=== PATIENT | male | born 1965 | race American Indian/Alaskan Native ===

== ENCOUNTER 2016-10-29 03:11 | Emergency (ER) | payer MEDICAID ==
[2016-10-29 04:07] LABS: Basophils % (Auto) 1.1 % (0.0-1.8); Eosinophils % (Auto) 2.3 % (0.0-4.3); Hematocrit 44.2 % (35.5-45.6); Hemoglobin 14.7 gm/dl (11.8-15.2); Mean Corpuscular HGB Conc 33 % (32-34); Mean Corpuscular Hemoglobin 31 pg (28-32); Mean Corpuscular Volume 94 fl (84-94); Red Blood Count 4.69 M/mm3 (3.65-5.03); Red Cell Distribution Width 14.9 % (13.2-15.2); White Blood Count 4.2 K/mm3 (4.5-11.0)
[2016-10-29 04:57] LABS: Alanine Aminotransferase 12 units/L (7-56); Albumin 4.2 g/dL (3.9-5); Albumin/Globulin Ratio 1.3 %; Alkaline Phosphatase 83 units/L (35-129); BUN/Creatinine Ratio 15.55; Bilirubin,Total 0.7 mg/dL (0.1-1.2); Blood Urea Nitrogen 14 mg/dL (9-20); Calcium 9.2 mg/dL (8.4-10.2); Carbon Dioxide 28 mmol/L (22-30); Chloride 101.7 mmol/L (98-107); Glucose 104 mg/dL (75-100); Lipase 28 units/L (13-60); Potassium 4.2 mmol/L (3.6-5.0); Sodium 140 mmol/L (137-145); Total Protein 7.4 g/dL (6.3-8.2)
[2016-10-29 05:01] LABS: Anion Gap 15 mmol/L
[2016-10-29 05:16] LABS: Bilirubin,Urine NEG (Negative); Blood,Urine NEG (Negative); Ketones,Urine NEG (Negative); Leukocyte Esterase,Urine NEG (Negative); Mucus,Urine 3+ /HPF; Nitrite,Urine NEG (Negative); Protein,Urine <15 mg/dL mg/dL (Negative); Urobilinogen,Urine < 2.0 mg/dL (<2.0); WBC,Urine < 1.0 /HPF (0.0-6.0)
[2016-10-29 05:28] LABS: Platelet Count 270 K/mm3 (140-440)
[2016-10-29 10:47] VITALS: BP 133/97
--- NOTE | 2016-10-29 10:56 | Emergency Department Report ---
HPI - General Chief Complaint: Abdominal Pain Time Seen by Provider: 10/29/16 10:02 - HPI HPI: The patient is a 51-year-old male who presents for evaluation of abdominal pain. The patient reports abdominal pain for the past greater than one year, return for the past one day, 10 out of 10 in severity, generalized in location, sharp in quality, radiating into the mid chest. The patient denies fever, cough , dyspnea, syncope, chest pain, hematemesis, diarrhea, blood in the stool, dark tarry stool, dysuria, hematuria, flank pain, genital discharge, inability to pass flatus. ED Past Medical Hx - Past Medical History Previous Medical History?: No - Surgical History Additional Surgical History: hemrroid surgery and cataract surgery - Social History Smoking Status: Never Smoker Substance Use Type: None - Medications Home Medications: Home Medications Medication Instructions Recorded Confirmed Last Taken Type Cyclobenzaprine HCl [Flexeril 5 MG 5 mg PO Q8HR PRN #14 tab 10/29/16 Unknown Rx TAB] Omeprazole Magnesium [PriLOSEC Otc] 20 mg PO QDAY #14 tablet. 10/29/16 Unknown Rx ED Review of Systems ROS: Stated complaint: ABDOMINAL PAIN Other details as noted in HPI Constitutional: denies: fever ENT: denies: throat or neck pain Respiratory: denies: cough, shortness of breath Cardiovascular: denies: chest pain Endocrine: denies unexplained weight loss or gain Gastrointestinal: reports abdominal pain, nausea Genitourinary: denies: dysuria Musculoskeletal: denies: leg swelling Skin: denies: rash Neurological: denies: headache Hematological/Lymphatic: denies: easy bleeding or easy bruising Psych: denies sadness or hopelessness Physical Exam - Physical Exam Vital Signs: Vital Signs 10/29/16 10/29/16 03:34 10:44 Temperature 98.2 F 97.6 F Pulse Rate 68 58 L Respiratory 18 15 Rate Blood Pressure 139/88 Blood Pressure 133/97 [Right] O2 Sat by Pulse 96 98 Oximetry Physical Exam: General: well-nourished, well-developed, no acute distress Head: Normocephalic, atraumatic Eyes: normal sclera ENT: Mucous membranes are pink and moist Neck: trachea midline, neck supple, No neck stiffness, no cervical adenopathy Respiratory: Breath sounds equal bilaterally, no wheezing, rales, or rhonchi Cardio: S1 and S2 present, no murmurs, rubs, gallops, capillary refill is brisk Abdomen: Normoactive bowel sounds, soft abdomen, generalized tenderness to palpation present, no rigidity, no guarding or rebound tenderness Musc: No pitting edema Skin: No rash Neuro: no facial drooping, normal speech Psych: Normal affect ED Course Vital Signs 10/29/16 10/29/16 03:34 10:44 Temperature 98.2 F 97.6 F Pulse Rate 68 58 L Respiratory 18 15 Rate Blood Pressure 139/88 Blood Pressure 133/97 [Right] O2 Sat by Pulse 96 98 Oximetry ED Medical Decision Making - Lab Data Result diagrams: 10/29/16 03:50 10/29/16 03:50 - Medical Decision Making The patient was seen and examined by myself. The patient is placed on a desktop support consultant and continuous pulse ox. On initial evaluation, the patient was found to be in no distress. Evaluation orders are placed. The patient is given an IM dose of morphine. Lab results were non-concerning including WBC, hemoglobin, hematocrit, electrolytes, renal function, LFTs, lipase, and urinalysis. The patient was reevaluated and reported that their symptoms were markedly improved. The patient is stable for discharge with outpatient follow- up. The patient is given follow-up and return instructions. The patient expressed understanding and agreed with the plan. The patient is discharged in stable condition. Critical care attestation.: If time is entered above; I have spent that time in minutes in the direct care of this critically ill patient, excluding procedure time. ED Disposition Clinical Impression: Abdominal pain, acute, generalized Disposition: DISCHARGED TO HOME OR SELFCARE Is pt being admited?: No Does the pt Need Aspirin: No Condition: Stable Instructions: Acute Abdominal Pain (ED), Peptic Ulcer (ED), Gastritis (ED), Diet for Ulcers and Gastritis (ED) Prescriptions: Cyclobenzaprine HCl [Flexeril 5 MG TAB] 5 mg PO Q8HR PRN #14 tab PRN Reason: Pain Omeprazole Magnesium [PriLOSEC Otc] 20 mg PO QDAY #14 tablet. Referrals: PRIMARY CARE, [Primary Care Provider] - 3-5 Days Time of Disposition: 10:51
[2016-10-29] MEDS ORDERED: MORPHINE IM ONE (10:58)
[2016-10-29] MEDS ORDERED: ZOFRAN ODT PO ONE (10:58)
== END 2016-10-29 11:29 | disposition home or self-care (01) ==
LOC: ED 03:11
DX: R10.84 Generalized abdominal pain (principal)
CPT/HCPCS: 36415; 80053; 81001; 83690; 85025; 96372; 99284; J2270; Q0162

== ENCOUNTER 2016-12-24 09:53 | Emergency (ER) | payer MEDICAID ==
[2016-12-24 10:09] VITALS: BP 125/84
--- NOTE | 2016-12-24 13:12 | Emergency Department Report ---
Upper Extremity - HPI Chief Complaint: Shoulder Injury Stated Complaint: RT SHOULDER PAIN Time Seen by Provider: 12/24/16 13:07 Upper Extremity: Right Shoulder (pain without injury), Right Arm (pain) Occurred When: >5 Days Mechanism: Unsure (patient said he's been lifting heavy objects) Severity: severe Symptoms: Yes Pain with Movement, Yes Limited Range of Movement, No Deformity, No Numbness, No Weakness, No Swelling, No Bruising/Ecchymosis, No Laceration or Abrasion Other History: Patient here reports that he is having rate upper arm and shoulder pain times one and a half weeks. Denies any injury. He said he feels like he pulled a muscle from lifting heavy objects. He said it hurts with certain movement and position. Pain is 10 out of 10. Pain feels achy. ED Review of Systems ROS: Stated complaint: RT SHOULDER PAIN Other details as noted in HPI Comment: All other systems reviewed and negative Constitutional: denies: chills, fever Respiratory: no symptoms reported Cardiovascular: denies: chest pain, palpitations, edema, syncope Gastrointestinal: denies: nausea, vomiting Musculoskeletal: arthralgia. denies: back pain Skin: denies: rash Neurological: denies: headache, numbness, paresthesias, confusion, abnormal gait , vertigo ED Past Medical Hx - Past Medical History Previous Medical History?: No - Surgical History Past Surgical History?: Yes Additional Surgical History: HEMORRHOID surgery and cataract surgery - Family History Family history: no significant - Social History Smoking Status: Never Smoker Substance Use Type: Alcohol - Medications Home Medications: Home Medications Medication Instructions Recorded Confirmed Last Taken Type traMADol [Ultram] 50 mg PO Q6HR PRN #20 tablet 12/24/16 Unknown Rx Upper Extremity Exam - Exam General: Vital signs noted. No distress. Alert and acting appropriately. This is a 51-year-old male well-nourished well-developed in no acute distress Head and Torso: No HEENT Abnormality, No Neck Tenderness, No Chest/Lungs Abnormality, No Abdominal Tenderness, No Back Tenderness Shoulder Exam: Yes Normal Range of Motion in Shoulder, No Shoulder Tenderness, No Clavicle Tenderness, No Shoulder Deformity, No AC Joint Tenderness Arm Exam: No Arm/Humerus Tenderness, No Arm Deformity Elbow: Yes Normal Range of Motion in Elbow, No Elbow Tenderness, No Elbow Deformity Forearm: No Forearm Tenderness, No Forearm Deformity, No Pain with Pronation, No Pain with Supination Wrist: Yes Normal ROM in Wrist, No Wrist Tenderness, No Wrist Deformity, No Snuffbox Tenderness, No Pain with Axial Thumb Compression Hand: Yes Normal ROM in Digit(s), No Hand Tenderness, No Hand Deformity, No Digit Tenderness, No Digit(s) Deformity, No Tendon Dysfunction CMS Exam: Yes Normal Distal Pulses, Yes Normal Capillary Refill, Yes Normal Distal Sensation, No Broken Skin ED Course Vital Signs 12/24/16 10:02 Temperature 98.4 F Pulse Rate 67 Respiratory 18 Rate Blood Pressure 125/84 O2 Sat by Pulse 98 Oximetry - Reevaluation(s) Reevaluation #1: 12/24/16 13:11 Patient stable throughout ED course ED Medical Decision Making - Medical Decision Making ED course: I discussed the patient is an physical findings she does not have any fracture or dislocated bones.I told him could have rotator cuff injury and he will need to follow-up with orthopedic doctor for possible MRI. I discussed diagnosis and pain management with patient. He is In agreement. Patient discharged home with prescription for Ultram Critical care attestation.: If time is entered above; I have spent that time in minutes in the direct care of this critically ill patient, excluding procedure time. ED Disposition Clinical Impression: Arthralgia of right shoulder region Disposition: DISCHARGED TO HOME OR SELFCARE Is pt being admited?: No Does the pt Need Aspirin: No Condition: Stable Instructions: Arthralgia (ED) Prescriptions: traMADol [Ultram] 50 mg PO Q6HR PRN #20 tablet PRN Reason: Pain Referrals: BANDAR CRAWFORD JR, MD [Primary Care Provider] - 3-5 Days NAYANA SHAW MD [Staff Physician] - 12/28/16 Forms: Accompanied Note, Work/School Release Form(ED)
== END 2016-12-24 13:24 | disposition home or self-care (01) ==
LOC: ED 09:53
DX: M25.511 Pain in right shoulder (principal)
CPT/HCPCS: 99282

== ENCOUNTER 2017-02-08 10:27 | Emergency (ER) | payer MEDICAID ==
--- NOTE | 2017-02-08 12:03 | Emergency Department Report ---
Entered by KODAK CAI, acting as scribe for ELIO OBRIEN NP. Chief Complaint: Chest Pain Stated Complaint: CP/ABD PAIN/CRAMPING Time Seen by Provider: 02/08/17 11:46 - HPI History of Present Illness: Patient presents to the ED abdominal cramping and chest pain for 5 months. Reports losing about 15 lbs in four months. Reports nausea and blood in stool, but denies vomiting and diarrhea. Patient notes that his diet mainly consists of spicy food. Reports having an infection last year and was prescribed medication with no relief. Consume moderate amounts of EtOH. - ROS Review of Systems: All systems are negative unless stated in HPI above. - Exam Vital Signs: Vital Signs 02/08/17 11:19 Temperature 98.1 F Pulse Rate 66 Blood Pressure 137/81 O2 Sat by Pulse 100 Oximetry Physical Exam: General: alert and oriented x 3 MSE screening note: Focused history and physical exam performed. Due to findings the following was ordered: ABD PAIN BLOODY STOOL WEAK SAME IN PAST SAW GI INFECTION DETAILS UNKNOWN LOST 14 POUNDS IN 4 MONTHS WEAK. ED Medical Decision Making - EKG Data EKG shows normal: sinus rhythm Rate: normal - EKG Data When compared to previous EKG there are: no significant change Interpretation: no acute changes - Medical Decision Making Patient seen by provider in triage area. Patient will be taken to get lab work done. ED Disposition for MSE Condition: Stable This documentation as recorded by the scribe,KODAK CAI,accurately reflects the service I personally performed and the decisions made by ,ELIO STRICKLAND NP.
[2017-02-08 12:26] LABS: Basophils % (Auto) 0.7 % (0.0-1.8); Eosinophils % (Auto) 2.4 % (0.0-4.3); Hematocrit 42.6 % (35.5-45.6); Hemoglobin 13.7 gm/dl (11.8-15.2); Mean Corpuscular HGB Conc 32 % (32-34); Mean Corpuscular Hemoglobin 31 pg (28-32); Mean Corpuscular Volume 95 fl (84-94); Platelet Count 213 K/mm3 (140-440); Red Cell Distribution Width 14.1 % (13.2-15.2); White Blood Count 5.2 K/mm3 (4.5-11.0)
[2017-02-08 12:36] LABS: Amylase 156 units/L (27-131); Lipase 26 units/L (13-60)
[2017-02-08 12:38] LABS: Alanine Aminotransferase 12 units/L (7-56); Albumin 4.3 g/dL (3.9-5); Albumin/Globulin Ratio 1.4 %; Alkaline Phosphatase 81 units/L (35-129); Anion Gap 14 mmol/L; Bilirubin,Total 0.4 mg/dL (0.1-1.2); Blood Urea Nitrogen 12 mg/dL (9-20); Calcium 9.6 mg/dL (8.4-10.2); Carbon Dioxide 27 mmol/L (22-30); Chloride 102.5 mmol/L (98-107); Glucose 95 mg/dL (75-100); Potassium 4.4 mmol/L (3.6-5.0); Sodium 139 mmol/L (137-145); Total Protein 7.3 g/dL (6.3-8.2)
[2017-02-08] MEDS ORDERED: BABY ASPIRIN PO ONE (21:02)
--- NOTE | 2017-02-08 21:11 | Emergency Department Report ---
ED Abdominal Pain HPI - General Chief Complaint: Chest Pain Stated Complaint: CP/ABD PAIN/CRAMPING Time Seen by Provider: 02/08/17 21:00 Source: patient Mode of arrival: Ambulatory Limitations: No Limitations - History of Present Illness Initial Comments: Patient is a 51-year-old gentleman with no past medical history is ends to the ER with diffuse abdominal pain 6 months. Patient reports today's different because the pain is more constant and the pain radiates up into the chest but patient denies chest pain. Patient also reports a 20 pound unintentional weight loss over the last 6 months but denies any change in appetite or difficulty eating. She has not seen a primary provider for this. Patient does report he does binge drink on the weekends but denies any other drug use or lifestyle changes. Eyes no fevers, chills, nausea, vomiting, diarrhea, chest pain, trauma, travel, or sick contacts. MD Complaint: abdominal pain, other (chest pain) -: month(s) (six) Location: diffuse Radiation: chest Severity: moderate Consistency: constant Improves With: nothing Worsens With: nothing - Related Data Previous Rx's Medication Instructions Recorded Last Taken Type traMADol [Ultram] 50 mg PO Q6HR PRN #20 tablet 12/24/16 Unknown Rx Allergies Allergy/AdvReac Type Severity Reaction Status Date / Time No Known Allergies Allergy Verified 12/24/16 10:10 ED Review of Systems ROS: Stated complaint: CP/ABD PAIN/CRAMPING Other details as noted in HPI Comment: All other systems reviewed and negative ED Past Medical Hx - Past Medical History Previous Medical History?: No - Surgical History Additional Surgical History: HEMORRHOID surgery and cataract surgery - Social History Smoking Status: Never Smoker Substance Use Type: Alcohol - Medications Home Medications: Home Medications Medication Instructions Recorded Confirmed Last Taken Type traMADol [Ultram] 50 mg PO Q6HR PRN #20 tablet 12/24/16 Unknown Rx ED Physical Exam - General Limitations: No Limitations General appearance: alert, in no apparent distress - Head Head exam: Present: atraumatic, normocephalic - Eye Eye exam: Present: normal appearance - ENT ENT exam: Present: mucous membranes moist - Neck Neck exam: Present: normal inspection - Respiratory Respiratory exam: Present: normal lung sounds bilaterally. Absent: respiratory distress - Cardiovascular Cardiovascular Exam: Present: regular rate, normal rhythm. Absent: systolic murmur, diastolic murmur, rubs, gallop - GI/Abdominal GI/Abdominal exam: Present: soft, tenderness (mild diffuse), normal bowel sounds. Absent: distended, guarding, rebound, mass, pulsatile mass, hernia - Rectal Rectal exam: Present: deferred - Extremities Exam Extremities exam: Present: normal inspection - Back Exam Back exam: Present: normal inspection - Neurological Exam Neurological exam: Present: alert, oriented X3 - Psychiatric Psychiatric exam: Present: normal affect, normal mood - Skin Skin exam: Present: warm, dry, intact, normal color. Absent: rash ED Course Vital Signs 02/08/17 02/08/17 11:19 21:11 Temperature 98.1 F 97.9 F Pulse Rate 66 51 L Respiratory 20 Rate Blood Pressure 137/81 Blood Pressure 133/96 [Left] O2 Sat by Pulse 100 99 Oximetry ED Medical Decision Making - Lab Data Result diagrams: 02/08/17 12:06 02/08/17 12:06 - EKG Data -: EKG Interpreted by Me (11:10) EKG shows normal: sinus rhythm, axis (normal), intervals (normal, QTc:422ms), ST -T waves ((-)ST/T changes, (-)STEMI) Rate: normal (61 bpm) - Radiology Data Radiology results: report reviewed CT abd pelvis: Left common iliac artery dilation of 2 cm otherwise no intra- abdominal pathology - Medical Decision Making Discussed with the patient patient is aware of mild dilation of his left common iliac artery. Patient to follow-up with primary care with recommendations to see a poll clerk. Critical care attestation.: If time is entered above; I have spent that time in minutes in the direct care of this critically ill patient, excluding procedure time. ED Disposition Clinical Impression: Chronic abdominal pain Disposition: DISCHARGED TO HOME OR SELFCARE Is pt being admited?: No Condition: Stable Instructions: Abdominal Pain (ED) Referrals: PRIMARY CARE,MD [Primary Care Provider] - 3-5 Days
[2017-02-08] MEDS ORDERED: NACL 0.9% 1000 ML 1,000 ML IV ONE (21:23)
[2017-02-08 22:06] LABS: Bilirubin,Urine NEG (Negative); Blood,Urine NEG (Negative); Ketones,Urine NEG (Negative); Leukocyte Esterase,Urine NEG (Negative); Mucus,Urine FEW /HPF; Nitrite,Urine NEG (Negative); Protein,Urine <15 mg/dL mg/dL (Negative); Urobilinogen,Urine < 2.0 mg/dL (<2.0); WBC,Urine < 1.0 /HPF (0.0-6.0)
--- NOTE | 2017-02-08 23:19 | Cat Scan Report ---
FINAL REPORT EXAM: CT ABDOMEN PELVIS W CON HISTORY: diffuse abdominal pain TECHNIQUE: Serial axial images through the abdomen and pelvis with coronal and sagittal reconstruction. Intravenous administration of 100 milliliters Omnipaque 300 PRIORS: None. FINDINGS: There is mild atelectasis in the lung bases. No pleural effusion is seen. The liver, gallbladder, pancreas, spleen and adrenal glands appear within normal limits. Kidneys appear normal. Aorta is normal in caliber. The left common iliac artery measures up to 2 centimeters in diameter. Bladder appears normal. No free fluid. Appendix appears normal. No gross bowel abnormality is identified. There is ankylosis of the sacroiliac joints. IMPRESSION: 1. No free fluid or inflammatory changes are seen in the abdomen or pelvis. 2. 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
[2017-02-09 00:12] VITALS: BP 130/86
--- NOTE | 2017-02-09 08:19 | XRay Report ---
ROUTINE CHEST, TWO VIEWS: PA and lateral views demonstrate the heart and mediastinal contour to be of normal size and shape. The lungs are clear and fully expanded and the soft tissues and bony structures are normal. IMPRESSION: Normal study.
== END 2017-02-08 23:55 | disposition home or self-care (01) ==
LOC: ED 10:27
DX: R10.84 Generalized abdominal pain (principal); G89.29 Other chronic pain
CPT/HCPCS: 36415; 71020; 74177; 80053; 81001; 82150; 83690; 84484; 85025; 93005; 93010; 96360; 99284; J7030; Q9967

== ENCOUNTER 2017-09-08 08:14 | Emergency (ER) | payer MEDICAID ==
[2017-09-08 08:29] VITALS: BP 125/76
[2017-09-08] MEDS ORDERED: RABAVERT RABIES VACCINE(PCEC) IM ONE (09:06)
[2017-09-08] MEDS ORDERED: BOOSTRIX IM ONE (09:06)
[2017-09-08] MEDS ORDERED: AUGMENTIN 875 MG PO ONE (09:06)
[2017-09-08] MEDS ORDERED: MOTRIN PO ONE (09:07)
--- NOTE | 2017-09-08 09:08 | Emergency Department Report ---
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 Patient states he was walking earlier today when he got to change them. In by a wild bulldog. Patient states is noted be imbibed up before. Patient states he is never pain vaccinated for rabies. He states he is unsure of his TD vaccination is up-to- date. She complains of some pain on his lower legs around the bite [place] ED Past Medical Hx - Past Medical History Previous Medical History?: Yes Additional medical history: Hemorrhoids - Surgical History Past Surgical History?: Yes Additional Surgical History: HEMORRHOID surgery and cataract surgery, Hernia surgery - Social History Smoking Status: Never Smoker Substance Use Type: None - Medications Home Medications: Home Medications Medication Instructions Recorded Confirmed Last Taken Type traMADol [Ultram] 50 mg PO Q6HR PRN #20 tablet 12/24/16 Unknown Rx Amoxicillin/K Clav Tab [Augmentin 1 tab PO Q12HR #14 tab 09/08/17 Unknown Rx 875 mg] Ibuprofen [Motrin] 800 mg PO Q8HR PRN #21 tablet 09/08/17 Unknown Rx Rabies Vaccine (Pcec)/Pf [Rabavert 2.5 unit IM 3XW #3 vial 09/08/17 Unknown Rx Rabies Vacc W-Diluent] ED Review of Systems ROS: Stated complaint: DOG BITE, LEFT ANKLE Other details as noted in HPI Constitutional: denies: chills, fever Eyes: denies: eye pain, eye discharge, vision change ENT: denies: ear pain, throat pain Respiratory: denies: cough, shortness of breath, wheezing Cardiovascular: denies: chest pain, palpitations Endocrine: no symptoms reported Gastrointestinal: denies: abdominal pain, nausea, diarrhea Genitourinary: denies: urgency, dysuria Musculoskeletal: denies: back pain, joint swelling, arthralgia Skin: other (dog bite wound). denies: rash, lesions, pruritus Neurological: denies: headache, weakness, paresthesias Psychiatric: denies: anxiety, depression Hematological/Lymphatic: denies: easy bleeding, easy bruising Physical Exam - Physical Exam Vital Signs: Vital Signs 09/08/17 08:24 Temperature 97.6 F Pulse Rate 66 Respiratory 18 Rate Blood Pressure 125/76 O2 Sat by Pulse 96 Oximetry Physical Exam: GENERAL: Alert and oriented x3, no apparent distress, Normal Gait, atraumatic. HEAD: Head is normocephalic and a-traumatic. EXTREMITIES/MUSCULOSKELETAL: Left lower posterior leg abrasion. Minimal bleeding. Bleeding resolved. No surrounding erythema, nonedematous. Full ROM bilaterally lower extremities. Pedal Pulses 2+ bilaterally. LE and UE 5+ strength bilaterally, NEUROLOGIC: The patient is cooperative with no focal neurologic deficits. Normal speech. Normal sensation in bilateral upper and lower extremities, No loss of sensation, SKIN: Warm and dry, No lesions, No ulceration or induration present. ED Course Vital Signs 09/08/17 08:24 Temperature 97.6 F Pulse Rate 66 Respiratory 18 Rate Blood Pressure 125/76 O2 Sat by Pulse 96 Oximetry ED Medical Decision Making - Medical Decision Making 51-year-old male presents with dog bite ED course: Patient received RIG, rabies vaccine And Motrin for pain. Dog bite abrasion cleaned with saline flushes. Discussed with patient. Keep wound open and mildly covered while working outside discussed otherwise keep wound dry Discussed to use Neosporin ointment as needed. Discussed to return day 3, day 7 and 14 for the risks of the vaccination. Vital signs are stable she is in no acute distress Discussed with the precinct police sergeant who has custody he would need to remove vaccinated and continue antibiotics swelling pen[facility]entiary. The officer responded that there is any extremity at the penitentiary that will diffuse medication as prescribed. Patient was discharged with Augmentin, 3 rabies vaccination for the remainder of the doses. Patient discharged to police custody Critical care attestation.: If time is entered above; I have spent that time in minutes in the direct care of this critically ill patient, excluding procedure time. ED Disposition Clinical Impression: Dog bite of left calf Qualifiers: Encounter type: initial encounter Qualified Code(s): S81.852A - Open bite, left lower leg, initial encounter; W54.0XXA - Bitten by dog, initial encounter; W54.0XXA - Bitten by dog, initial encounter Disposition: DC-01 TO HOME OR SELFCARE Is pt being admited?: No Does the pt Need Aspirin: No Condition: Stable Instructions: Animal Bite (ED), Acute Wound Care (ED) Additional Instructions: Administer as scheduled below Rabies Vaccination schedule administer one vial on 09/11/17 administer second dose on 09/15/17 administer last dose on 09/22/17 Augmentin 875 mg should be given an twice a day 7 days Prescriptions: Amoxicillin/K Clav Tab [Augmentin 875 mg] 1 tab PO Q12HR #14 tab Ibuprofen [Motrin] 800 mg PO Q8HR PRN #21 tablet PRN Reason: Pain Rabies Vaccine (Pcec)/Pf [Rabavert Rabies Vacc W-Diluent] 2.5 unit IM 3XW #3 vial Forms: Accompanied Note Time of Disposition: 10:06
[2017-09-08] MEDS ORDERED: hyperRAB S/D IM ONE (10:00)
[2017-09-08] MEDS ORDERED: TRIPLE ANTIBIOTIC TP ONE (10:19)
== END 2017-09-08 11:00 | disposition home or self-care (01) ==
LOC: ED 08:14
DX: S81.852A Open bite, left lower leg, initial encounter (principal); W54.0XXA Bitten by dog, initial encounter; Y93.89 Activity, other specified; Y92.89 Other specified places as the place of occurrence of the external cause; Y99.8 Other external cause status
CPT/HCPCS: 90375; 90471; 90675; 90715; 96372; A6250

== ENCOUNTER 2017-09-27 02:35 | Emergency (ER) | payer MEDICAID ==
[2017-09-27 03:51] VITALS: BP 107/74
--- NOTE | 2017-09-27 04:30 | XRay Report ---
FINAL REPORT EXAM: XR ANKLE 2V LT HISTORY: old dog bite, ankle pain COMPARISONS: None. FINDINGS: AP and lateral views left ankle The ankle mortise is intact. No radiodense foreign body, bone lesion, periosteal reaction, or fracture. No deformity or gross malalignment. Mild midfoot osteoarthrosis. Achilles insertional enthesophytes are noted. IMPRESSION: No radiodense foreign body, fracture or gross malalignment involving the left ankle.
--- NOTE | 2017-09-27 05:15 | Emergency Department Report ---
ED Animal Bite HPI - General Chief Complaint: Extremity Injury, Lower Stated Complaint: DOG BITE Time Seen by Provider: 09/27/17 04:38 Source: patient Mode of arrival: Ambulatory Limitations: No Limitations - History of Present Illness Initial Comments: 51-year-old male past medical history animal bite left ankle 3 weeks ago presents with complaint of some discomfort left lower medial ankle where he was bitten 3 weeks ago. Denies any fevers or chills denies any pus or blood drainage from wound site. States it has been healing. States that it has felt somewhat itchy and slightly sore than before in the last 3 days. States he did not follow-up and appropriate time frame for rabies vaccination. Received rabies first shot and immunoglobulin on 09/08. Denies any chest pain shortness of breath palpitations abdominal pain. Ambulating without assistance. Left and swelling of left lower extremity. States he did complete initial course of antibiotics. States that he was bitten 3 weeks ago by a stray dog. MD Complaint: animal bite Onset/Timin -: days(s) Left: Ankle Animal: dog Animal Control Notified: No Mechanism: bite Pain Description: dull Severity scale (0 -10): 3 Context: unprovoked - Related Data Patient Tetanus UTD: Yes Previous Rx's Medication Instructions Recorded Last Taken Type traMADol [Ultram] 50 mg PO Q6HR PRN #20 tablet 12/24/16 Unknown Rx Amoxicillin/K Clav Tab [Augmentin 1 tab PO Q12HR #14 tab 09/08/17 Unknown Rx 875 mg] Ibuprofen [Motrin] 800 mg PO Q8HR PRN #21 tablet 09/08/17 Unknown Rx Rabies Vaccine (Pcec)/Pf [Rabavert 2.5 unit IM 3XW #3 vial 09/08/17 Unknown Rx Rabies Vacc W-Diluent] Bacitracin Zinc Oint [Antibiotic 1 applicatio TP TID #1 tube 09/27/17 Unknown Rx Oint] Clindamycin [Clindamycin CAP] 300 mg PO Q6H #28 capsule 09/27/17 Unknown Rx Doxycycline [Vibramycin CAP] 100 mg PO Q12HR #14 capsule 09/27/17 Unknown Rx Naproxen 500 mg PO BID PRN #30 tablet 09/27/17 Unknown Rx Allergies Allergy/AdvReac Type Severity Reaction Status Date / Time No Known Allergies Allergy Verified 12/24/16 10:10 ED Review of Systems ROS: Stated complaint: DOG BITE Other details as noted in HPI Constitutional: denies: chills, fever Eyes: denies: eye pain, eye discharge, vision change ENT: denies: ear pain, throat pain Respiratory: denies: cough, shortness of breath, wheezing Cardiovascular: denies: chest pain, palpitations Endocrine: no symptoms reported Gastrointestinal: denies: abdominal pain, nausea, diarrhea Genitourinary: denies: urgency, dysuria Musculoskeletal: denies: back pain, joint swelling, arthralgia Skin: as per HPI, rash. denies: lesions Neurological: denies: headache, weakness, paresthesias Psychiatric: denies: anxiety, depression Hematological/Lymphatic: denies: easy bleeding, easy bruising ED Past Medical Hx - Past Medical History Previous Medical History?: No Additional medical history: Hemorrhoids - Surgical History Past Surgical History?: Yes Additional Surgical History: HEMORRHOID surgery and cataract surgery, Hernia surgery - Social History Smoking Status: Never Smoker Substance Use Type: Alcohol - Medications Home Medications: Home Medications Medication Instructions Recorded Confirmed Last Taken Type traMADol [Ultram] 50 mg PO Q6HR PRN #20 tablet 12/24/16 Unknown Rx Amoxicillin/K Clav Tab [Augmentin 1 tab PO Q12HR #14 tab 09/08/17 Unknown Rx 875 mg] Ibuprofen [Motrin] 800 mg PO Q8HR PRN #21 tablet 09/08/17 Unknown Rx Rabies Vaccine (Pcec)/Pf [Rabavert 2.5 unit IM 3XW #3 vial 09/08/17 Unknown Rx Rabies Vacc W-Diluent] Bacitracin Zinc Oint [Antibiotic 1 applicatio TP TID #1 tube 09/27/17 Unknown Rx Oint] Clindamycin [Clindamycin CAP] 300 mg PO Q6H #28 capsule 09/27/17 Unknown Rx Doxycycline [Vibramycin CAP] 100 mg PO Q12HR #14 capsule 09/27/17 Unknown Rx Naproxen 500 mg PO BID PRN #30 tablet 09/27/17 Unknown Rx ED Physical Exam - General Limitations: No Limitations General appearance: alert, in no apparent distress - Head Head exam: Present: atraumatic, normocephalic - Eye Eye exam: Present: normal appearance, PERRL, EOMI - ENT ENT exam: Present: mucous membranes moist - Neck Neck exam: Present: normal inspection - Respiratory Respiratory exam: Present: normal lung sounds bilaterally. Absent: respiratory distress - Cardiovascular Cardiovascular Exam: Present: regular rate, normal rhythm. Absent: systolic murmur, diastolic murmur, rubs, gallop - GI/Abdominal GI/Abdominal exam: Present: soft, normal bowel sounds - Rectal Rectal exam: Present: deferred - Extremities Exam Extremities exam: Present: normal inspection - Expanded Lower Extremity Exam Left Knee exam: Present: normal inspection, full ROM Lower Leg exam: Present: normal inspection, full ROM Ankle exam: Present: full ROM (dorsiflexion and plantarflexion intact), tenderness (healing wound above the left medial malleoli region approximately to 3 cm with central scab. Appears slightly red) - Back Exam Back exam: Present: normal inspection - Neurological Exam Neurological exam: Present: alert, oriented X3 - Psychiatric Psychiatric exam: Present: normal affect, normal mood - Skin Skin exam: Present: warm, dry, intact, normal color. Absent: rash ED Course Vital Signs 09/27/17 03:47 Temperature 97.9 F Pulse Rate 58 L Blood Pressure 107/74 O2 Sat by Pulse 98 Oximetry Critical care attestation.: If time is entered above; I have spent that time in minutes in the direct care of this critically ill patient, excluding procedure time. Critical Care Time: A/P: Dog bite left lower extremity 1-patient did not follow up appropriately for timing of rabies vaccination will restart 2-minimal erythema on clinical exam. Possibly inflammatory versus infectious. No purulence and foul odor noted on clinical exam of the wound site. Appears to be healing.. Patient had course of Augmentin initially. Will give patient course of clindamycin plus doxycycline as per up-to-date.Photos to Photos recommendations on antibiotics for wounds associated with animal bites [email or web address]%20antibiotics&[email or web address]&searchType=PLAIN_TEXT& source=USER_INPUT&searchControl=[email or web address]&searchOffset=1&autoComplete=false& language=en&max=10&index=&autoCompleteTerm= 3-as per reference link cited here interrupted rabies scheduel shows no definitive decrease in efficiency of series. I gave patient's specific dates for rabies vaccine. As patient received first rabies vaccination on 09/08 that we'll be counted as day 0. 09/27 all be counted as day 3. I emphasized the importance of maintaining consistent schedule of immunization to the patient. He stated that he would try to follow up as instructed. If patient misses exact schedule next dose given as dose #2 in series as per [employer] therefore: Dose 1 09/08/17: given Dose 2 09/27/17: given Dose 3 10/01/17: pending Dose 4: 10/08/17: pending Reference [email or web address] source=[email or web address]&search=rabies%20vaccine%20schedule&selectedTitle=1~150& sectionRank=2&anchor=[email or web address] 4-Case d/w Dr. Perez before discharge ED Disposition Clinical Impression: Need for rabies vaccination Dog bite of left lower leg Qualifiers: Encounter type: sequela Qualified Code(s): S81.852S - Open bite, left lower leg , sequela; W54.0XXS - Bitten by dog, sequela; W54.0XXS - Bitten by dog, sequela Disposition: DC-01 TO HOME OR SELFCARE Is pt being admited?: No Does the pt Need Aspirin: No Condition: Stable Instructions: Rabies Vaccine (Injection), Animal Bite (ED), Acute Wound Care ( ED) Additional Instructions: RABIES SCHEDULE: NEXT DOSE DUE 10/01/17 Dose 1 09/08/17: given Dose 2 09/27/17: given Dose 3 10/01/17: pending Dose 4: 10/08/17: pending Prescriptions: Bacitracin Zinc Oint [Antibiotic Oint] 1 applicatio TP TID #1 tube Clindamycin [Clindamycin CAP] 300 mg PO Q6H #28 capsule Doxycycline [Vibramycin CAP] 100 mg PO Q12HR #14 capsule Naproxen 500 mg PO BID PRN #30 tablet PRN Reason: Pain Referrals: [facility] [Outside] - 3-5 Days [facility] [Outside] - 3-5 Days Forms: Work/School Release Form(ED) Time of Disposition: 05:52
[2017-09-27] MEDS ORDERED: RABAVERT RABIES VACCINE(PCEC) IM ONE (05:16)
[2017-09-27] MEDS ORDERED: CLEOCIN PO ONE (05:37)
[2017-09-27] MEDS ORDERED: TORADOL IM ONE (05:37)
[2017-09-27] MEDS ORDERED: VIBRAMYCIN PO ONE (05:44)
== END 2017-09-27 06:37 | disposition home or self-care (01) ==
LOC: ED 02:35
DX: S81.852S Open bite, left lower leg, sequela (principal); M25.572 Pain in left ankle and joints of left foot; Z23 Encounter for immunization; W54.0XXS Bitten by dog, sequela
CPT/HCPCS: 73600; 90675; 96372; 99283; J1885

== ENCOUNTER 2018-08-15 04:14 | Emergency (ER) | payer MEDICAID ==
[2018-08-15] MEDS ORDERED: ULTRAM PO ONE (08:29)
[2018-08-15] MEDS ORDERED: DELTASONE PO ONE (08:29)
--- NOTE | 2018-08-15 08:29 | Emergency Department Report ---
ED ENT HPI - General Chief complaint: Dental/Oral Stated complaint: FACIAL PAIN Time Seen by Provider: 08/15/18 08:26 Source: patient Mode of arrival: Ambulatory Limitations: No Limitations - History of Present Illness MD complaint: tooth pain -: Gradual Severity: mild Quality: aching Consistency: constant Improves with: none Worsens with: none Context- Dental: history of dental caries, other (recurrent problem) Associated Symptoms: toothache, other (pain on the right side of his face). denies: fever, cough, gum swelling, pain with swallowing, sore throat, tinnitus , hearing loss, discharge from ear, rhinorrhea - Related Data Previous Rx's Medication Instructions Recorded Last Taken Type Amoxicillin 500 mg PO BID #20 capsule 08/15/18 Unknown Rx Naproxen [Naprosyn] 500 mg PO BID PRN #20 tablet 08/15/18 Unknown Rx methylPREDNISolone [Medrol] 4 mg PO DAILY #1 tab.ds.pk 08/15/18 Unknown Rx Allergies Allergy/AdvReac Type Severity Reaction Status Date / Time No Known Allergies Allergy Verified 08/15/18 07:10 ED Dental HPI - General Chief complaint: Dental/Oral Stated complaint: FACIAL PAIN Time Seen by Provider: 08/15/18 08:26 Source: patient Mode of arrival: Ambulatory Limitations: No Limitations - Related Data Previous Rx's Medication Instructions Recorded Last Taken Type Amoxicillin 500 mg PO BID #20 capsule 08/15/18 Unknown Rx Naproxen [Naprosyn] 500 mg PO BID PRN #20 tablet 08/15/18 Unknown Rx methylPREDNISolone [Medrol] 4 mg PO DAILY #1 tab.ds.pk 08/15/18 Unknown Rx Allergies Allergy/AdvReac Type Severity Reaction Status Date / Time No Known Allergies Allergy Verified 08/15/18 07:10 ED Review of Systems ROS: Stated complaint: FACIAL PAIN Other details as noted in HPI Comment: All other systems reviewed and negative Constitutional: denies: chills, fever Eyes: denies: eye pain, eye discharge, vision change ENT: dental pain. denies: ear pain, throat pain Respiratory: denies: cough Cardiovascular: denies: chest pain Endocrine: denies: excessive sweating Gastrointestinal: denies: abdominal pain Genitourinary: denies: dysuria Musculoskeletal: denies: back pain Skin: denies: rash Neurological: denies: headache Psychiatric: denies: depression Hematological/Lymphatic: denies: easy bleeding ED Past Medical Hx - Past Medical History Previous Medical History?: No Additional medical history: Hemorrhoids - Surgical History Additional Surgical History: HEMORRHOID surgery and cataract surgery, Hernia surgery - Family History Family history: no significant - Social History Smoking Status: Current Every Day Smoker Substance Use Type: None - Medications Home Medications: Home Medications Medication Instructions Recorded Confirmed Last Taken Type Amoxicillin 500 mg PO BID #20 capsule 08/15/18 Unknown Rx Naproxen [Naprosyn] 500 mg PO BID PRN #20 tablet 08/15/18 Unknown Rx methylPREDNISolone [Medrol] 4 mg PO DAILY #1 tab.ds.pk 08/15/18 Unknown Rx ED Physical Exam - General Limitations: No Limitations General appearance: alert - Head Head exam: Present: atraumatic - Eye Eye exam: Present: normal appearance, PERRL Pupils: Present: normal accommodation - ENT ENT exam: Present: normal exam, mucous membranes moist - Expanded ENT Exam Expanded Mouth exam: Present: normal external inspection, tongue normal. Absent: drooling, trismus, muffled voice, tongue elevation, laceration Teeth exam: Present: dental caries (1 to 5), fractured tooth # (4). Absent: dental tenderness #, gingival enlargement Throat exam: Positive: normal inspection. Negative: tonsillar erythema, tonsillomegaly, tonsillar exudate, R peritonsillar mass, L peritonsillar mass - Neck Neck exam: Present: normal inspection, full ROM, lymphadenopathy (r). Absent: tenderness, meningismus, thyromegaly - Respiratory Respiratory exam: Present: normal lung sounds bilaterally - Cardiovascular Cardiovascular Exam: Present: regular rate, bradycardia - GI/Abdominal GI/Abdominal exam: Present: soft - Rectal Rectal exam: Present: deferred - Extremities Exam Extremities exam: Present: normal inspection - Back Exam Back exam: Present: normal inspection - Neurological Exam Neurological exam: Present: alert, oriented X3, CN II-XII intact, normal gait - Psychiatric Psychiatric exam: Present: normal affect, normal mood - Skin Skin exam: Present: warm, dry, intact ED Course Vital Signs 08/15/18 08/15/18 08/15/18 05:11 07:10 09:05 Temperature 98.3 F 98.3 F Pulse Rate 47 L 50 L 59 L Respiratory 18 18 16 Rate Blood Pressure 121/85 121/85 Blood Pressure 119/81 [Left] O2 Sat by Pulse 98 98 100 Oximetry ED Medical Decision Making - Medical Decision Making Nontoxic non-ill appearing no abscess afebrile Acute on chronic dental disease Left maxillary rear molars from #5-1 - Differential Diagnosis Gen. caries versus abscess Critical care attestation.: If time is entered above; I have spent that time in minutes in the direct care of this critically ill patient, excluding procedure time. ED Disposition Clinical Impression: Dental disease, Dental caries Disposition: TO HOME OR SELFCARE Is pt being admited?: No Does the pt Need Aspirin: No Condition: Stable Instructions: Dental Caries (ED), Toothache (ED) Additional Instructions: HYDRATE WELL WITH WATER FOLLOW UP WITH DENTIST REFERRALS GIVEN BELOW DIET TOLERATED WARM COMPRESSES MEDS ORDERED TODAY Prescriptions: Amoxicillin 500 mg PO BID #20 capsule methylPREDNISolone [Medrol] 4 mg PO DAILY #1 tab.ds.pk Naproxen [Naprosyn] 500 mg PO BID PRN #20 tablet PRN Reason: Pain Referrals: [facility] [Outside] - 3-5 Days [facility] [Outside] - 3-5 Days Time of Disposition: 08:32
[2018-08-15] MEDS ORDERED: TRIMOX PO ONE (08:30)
[2018-08-15 09:05] VITALS: BP 119/81
== END 2018-08-15 09:05 | disposition home or self-care (01) ==
LOC: ED 04:14
DX: K02.9 Dental caries, unspecified (principal); F17.200 Nicotine dependence, unspecified, uncomplicated
CPT/HCPCS: 99282

== ENCOUNTER 2019-01-25 10:24 | Emergency (ER) | payer MEDICAID ==
[2019-01-25] MEDS ORDERED: IBUPROFEN PO ONE (11:36)
--- NOTE | 2019-01-25 11:39 | Emergency Department Report ---
ED Lower Extremity HPI - General Chief Complaint: Extremity Injury, Lower Stated Complaint: RT LEG PAIN AND STIFFNESS Time Seen by Provider: 01/25/19 11:17 Source: patient Mode of arrival: Ambulatory Limitations: No Limitations - History of Present Illness Initial Comments: This is a 53-year-old male nontoxic, well nourished in appearance, no acute sign s of distress presents to the ED with c/o of right leg pain 1 month. Patient denies any trauma. Patient denies any numbness, tingling, fever, chills, nausea, vomiting, chest pain, shortness of breath, headache, stiff neck. Patient denies any joint swelling or joint redness. Patient denies decreased range of motion. Patient stated has decreased gait due to pain. Patient denies any allergies. MD Complaint: leg injury -: month(s) (1) Injury: Leg: Right Severity: mild Severity scale (0 -10): 8 Improves With: immobilization Worsens With: weight bearing, movement, palpation Associated Symptoms: able to partially bear weight, ambulatory. denies: snap/pop sensation, swelling, numbness, tingling, unable to bear weight - Related Data Previous Rx's Medication Instructions Recorded Last Taken Type Amoxicillin 500 mg PO BID #20 capsule 08/15/18 Unknown Rx Naproxen [Naprosyn] 500 mg PO BID PRN #20 tablet 08/15/18 Unknown Rx methylPREDNISolone [Medrol] 4 mg PO DAILY #1 tab.ds.pk 08/15/18 Unknown Rx Ibuprofen [Motrin] 600 mg PO Q8H PRN #20 tablet 01/25/19 Unknown Rx Allergies Allergy/AdvReac Type Severity Reaction Status Date / Time No Known Allergies Allergy Verified 08/15/18 07:10 ED Review of Systems ROS: Stated complaint: RT LEG PAIN AND STIFFNESS Other details as noted in HPI Constitutional: denies: chills, fever Eyes: denies: eye pain, eye discharge, vision change ENT: denies: ear pain, throat pain Respiratory: denies: cough, shortness of breath, wheezing Cardiovascular: denies: chest pain, palpitations Endocrine: no symptoms reported Gastrointestinal: denies: abdominal pain, nausea, diarrhea Genitourinary: denies: urgency, dysuria Musculoskeletal: arthralgia. denies: back pain, joint swelling Skin: denies: rash, lesions Neurological: denies: headache, weakness, paresthesias Psychiatric: denies: anxiety, depression Hematological/Lymphatic: denies: easy bleeding, easy bruising ED Past Medical Hx - Past Medical History Additional medical history: Hemorrhoids - Surgical History Additional Surgical History: HEMORRHOID surgery and cataract surgery, Hernia surgery - Social History Smoking Status: Current Every Day Smoker Substance Use Type: None - Medications Home Medications: Home Medications Medication Instructions Recorded Confirmed Last Taken Type Amoxicillin 500 mg PO BID #20 capsule 08/15/18 Unknown Rx Naproxen [Naprosyn] 500 mg PO BID PRN #20 tablet 08/15/18 Unknown Rx methylPREDNISolone [Medrol] 4 mg PO DAILY #1 tab.ds.pk 08/15/18 Unknown Rx Ibuprofen [Motrin] 600 mg PO Q8H PRN #20 tablet 01/25/19 Unknown Rx ED Physical Exam - General Limitations: No Limitations General appearance: alert, in no apparent distress - Head Head exam: Present: atraumatic, normocephalic - Eye Eye exam: Present: normal appearance - Neck Neck exam: Present: normal inspection, full ROM. Absent: tenderness, meningismus, lymphadenopathy - Respiratory Respiratory exam: Present: normal lung sounds bilaterally. Absent: respiratory distress, wheezes, rales, rhonchi, stridor, chest wall tenderness, accessory muscle use, decreased breath sounds, prolonged expiratory - Cardiovascular Cardiovascular Exam: Present: regular rate, normal rhythm, normal heart sounds. Absent: bradycardia, tachycardia, irregular rhythm, systolic murmur, diastolic murmur, rubs, gallop - Extremities Exam Extremities exam: Present: normal inspection, full ROM, tenderness, normal capillary refill, calf tenderness. Absent: joint swelling - Expanded Lower Extremity Exam Right Hip exam: Present: normal inspection, full ROM. Absent: tenderness, swelling Upper Leg exam: Present: normal inspection, full ROM. Absent: tenderness, swelling Knee exam: Present: normal inspection, full ROM, full knee extension. Absent: tenderness, swelling, abrasion, laceration, ecchymosis, deformity, crepidus, dislocation, erythema, effusion, pain w/ pronation/supination, posterior draw sign, pain/laxity with valgus, pain/laxity with varus Lower Leg exam: Present: normal inspection, full ROM, tenderness. Absent: swelling, abrasion, laceration, ecchymosis, deformity, crepidus, dislocation, erythema, palpable cord, Shellie's sign Ankle exam: Present: normal inspection, full ROM. Absent: tenderness, swelling Foot/Toe exam: Present: normal inspection, full ROM. Absent: tenderness, swelling Neuro vascular tendon exam: Present: no vascular compromise Gait: Positive: observed and limited by pain - Back Exam Back exam: Present: normal inspection, full ROM. Absent: tenderness, CVA tenderness (R), CVA tenderness (L), muscle spasm, paraspinal tenderness, vertebral tenderness, rash noted - Neurological Exam Neurological exam: Present: alert, oriented X3 - Psychiatric Psychiatric exam: Present: normal affect, normal mood - Skin Skin exam: Present: warm, dry, intact, normal color. Absent: rash ED Course Vital Signs 01/25/19 10:38 Temperature 98.9 F Pulse Rate 73 Respiratory 16 Rate Blood Pressure 95/67 [Right] - Reevaluation(s) Reevaluation #1: 01/25/19 11:38 Patient is speaking in full sentences with no signs of distress noted. ED Lower Extremity MDM - Medical Decision Making This is a 53-year-old male that presents with left leg strain. Patient is stable and was examined by me. I referred patient to an orthopedic doctor for further evaluation for possible MRI. Doppler ultrasound for DVT has been obtained and negative for DVT and dictated by the radiologist. X-ray has been obtained and dictated by the radiologist. Patient is notified of the x-ray report with noted by the patient. Patient does have normal gait with no tenderness and no joint swelling. No ecchymosis. no joint redness or swelling. Not warm to touch. No signs of cellulites present. Patient was instructed to RICE therapy. Patient received Motrin for pain. Patient is discharged with Motrin. At time of discharge, the patient does not seem toxic or ill in appearance. No acute signs of distress noted. Patient agrees to discharge treatment plan of care. No further questions noted by the patient. Critical care attestation.: If time is entered above; I have spent that time in minutes in the direct care of this critically ill patient, excluding procedure time. ED Disposition Clinical Impression: Strain of right knee and leg Qualifiers: Encounter type: initial encounter Qualified Code(s): S86.911A - Strain of unspecified muscle(s) and tendon(s) at lower leg level, right leg, initial encounter Disposition: DC-01 TO HOME OR SELFCARE Is pt being admited?: No Does the pt Need Aspirin: No Condition: Stable Additional Instructions: Follow-up with a primary care doctor in 3-5 days or if symptoms worsen and continue return to emergency room as soon as possible. Prescriptions: Ibuprofen [Motrin] 600 mg PO Q8H PRN #20 tablet PRN Reason: Pain Referrals: [facility] MD LAURA [Primary Care Provider] - 3-5 Days PRIMARY MD DOREEN [Referring] - 3-5 Days ART BAUTISTA MD [Staff Physician] - 3-5 Days [facility] [Outside] - 3-5 Days [facility] [Outside] - 3-5 Days Forms: Work/School Release Form(ED)
[2019-01-25] MEDS ORDERED: ATIVAN ONE (12:25)
--- NOTE | 2019-01-25 12:35 | XRay Report ---
XRAY RIGHT TIBIA AND FIBULA TWO VIEWS: 01/25/19 10:24:00 CLINICAL: Right leg pain. FINDINGS: Mild osteopenia. Deformity of the lateral tibial plateau and deformity of the distal fibula are consistent with old fractures with remodeling. No acute fracture identified. Normal alignment at the knee and at the ankle. No knee joint effusion. Normal soft tissues.No soft tissue air or foreign body. IMPRESSION: Old fracture deformities of the lateral tibial plateau and the distal fibula. No acute findings.
--- NOTE | 2019-01-25 13:50 | Vascular Lab Report ---
PROCEDURE: VL VENOUS DUPLEX LE RT TECHNIQUE: Grayscale, color flow and Doppler waveform imaging of the deep venous structures of the r ight lower extremity and the left common femoral, deep femoral and proximal superficial femoral veins were obtained. HISTORY: right leg pain COMPARISONS: None FINDINGS: There is demonstration of normal compression and normal phasic flow in the deep venous structures of the right lower extremity from the common femoral vein to the popliteal vein. There is demonstration of flow in the right posterior tibial and peroneal veins. The anterior tibial vein is not demonstrated. There is demonstration of normal compression and normal phasic flow in the left common femoral vein, deep femoral vein and visualized portion of the left superficial femoral vein. IMPRESSION: 1. No ultrasound evidence of deep venous thrombosis right lower extremity nor in the proximal left lo wer extremity. This document is electronically signed by Luz Maldonado MD., January 25 2019 01:48:29 PM ET
[2019-01-25 13:56] VITALS: BP 110/78
== END 2019-01-25 14:01 | disposition home or self-care (01) ==
LOC: ED 10:24
DX: S86.911A Strain of unspecified muscle(s) and tendon(s) at lower leg level, right leg, initial encounter (principal); F17.200 Nicotine dependence, unspecified, uncomplicated; Z98.890 Other specified postprocedural states; X58.XXXA Exposure to other specified factors, initial encounter; Y93.89 Activity, other specified; Y92.89 Other specified places as the place of occurrence of the external cause; Y99.8 Other external cause status
CPT/HCPCS: 73590; 93971; 99284; J2060

== ENCOUNTER 2022-01-05 16:02 | Emergency (ER) | payer MEDICAID ==
[2022-01-05] MEDS ORDERED: FAMOTIDINE 20 MG/2 ML INJ IV ONE (18:29)
[2022-01-05] MEDS ORDERED: ONDANSETRON 4 MG/2 ML INJ IV ONE (18:29)
[2022-01-05] MEDS ORDERED: MORPHINE 4 MG/1 ML INJ IV ONE (18:29)
--- NOTE | 2022-01-05 18:40 | Emergency Department Report ---
ED Abdominal Pain HPI - General Chief Complaint: Abdominal Pain Stated Complaint: RT LEG PAIN Time Seen by Provider: 01/05/22 18:16 Source: patient Mode of arrival: Wheelchair Limitations: No Limitations - History of Present Illness Initial Comments: 56-year-old male presents to the hospital with 2 separate complaints. Patient complains of lateral left ankle pain for the past 2 days after a fall in which he landed on his left side. Patient reports minimum movement secondary to pain and unable to bear weight since fall. patient also complains of generalized abdominal pain, nausea, vomiting, and diarrhea intermittent for the last 2 months. Patient states he was evaluated at [facility] 2 weeks ago and obtained a CAT scan with prescribed medications. Patient has since run out of the medication and complains of persistent pain. He has not followed up with his PMD or specialist regarding his complaints. He does not know the. No complaints of fever. He complains of dark stool and endorses NSAID use but denies daily alcohol intake. Severity scale (0 -10): 10 - Related Data Previous Rx's Medication Instructions Recorded Last Taken Type Amoxicillin 500 mg PO BID #20 capsule 08/15/18 Unknown Rx Naproxen [Naprosyn] 500 mg PO BID PRN #20 tablet 08/15/18 Unknown Rx methylPREDNISolone [Medrol] 4 mg PO DAILY #1 tab.ds.pk 08/15/18 Unknown Rx Ibuprofen [Motrin] 600 mg PO Q8H PRN #20 tablet 01/25/19 Unknown Rx Famotidine [Pepcid] 20 mg PO BID #20 tablet 01/05/22 Unknown Rx HYDROcodone/APAP 5-325 [[place] 1 each PO Q6HR PRN #12 tablet 01/05/22 Unknown Rx 5/325] Ibuprofen [Motrin] 600 mg PO Q8H PRN #20 tablet 01/05/22 Unknown Rx Ondansetron [Zofran Odt] 4 mg PO Q8HR #20 tab.rapdis 01/05/22 Unknown Rx Allergies Allergy/AdvReac Type Severity Reaction Status Date / Time No Known Allergies Allergy Verified 08/15/18 07:10 ED Review of Systems ROS: Stated complaint: RT LEG PAIN Other details as noted in HPI Comment: All other systems reviewed and negative ED Past Medical Hx - Past Medical History Previous Medical History?: No Additional medical history: Hemorrhoids - Surgical History Additional Surgical History: HEMORRHOID surgery and cataract surgery, Hernia surgery - Social History Smoking Status: Current Every Day Smoker Substance Use Type: None - Medications Home Medications: Home Medications Medication Instructions Recorded Confirmed Last Taken Type Amoxicillin 500 mg PO BID #20 capsule 08/15/18 Unknown Rx Naproxen [Naprosyn] 500 mg PO BID PRN #20 tablet 08/15/18 Unknown Rx methylPREDNISolone [Medrol] 4 mg PO DAILY #1 tab.ds.pk 08/15/18 Unknown Rx Ibuprofen [Motrin] 600 mg PO Q8H PRN #20 tablet 01/25/19 Unknown Rx Famotidine [Pepcid] 20 mg PO BID #20 tablet 01/05/22 Unknown Rx HYDROcodone/APAP 5-325 [[place] 1 each PO Q6HR PRN #12 tablet 01/05/22 Unknown Rx 5/325] Ibuprofen [Motrin] 600 mg PO Q8H PRN #20 tablet 01/05/22 Unknown Rx Ondansetron [Zofran Odt] 4 mg PO Q8HR #20 tab.rapdis 01/05/22 Unknown Rx ED Physical Exam - General Limitations: No Limitations - Other Other exam information: General: No acute distress Head: Atraumatic Eyes: normal appearance ENT: Moist mucous membranes Neck: Normal appearance, no midline tenderness Chest: Clear to auscultation bilaterally CV: Regular rate and rhythm Abdomen: Soft, normal bowel sounds, generalized abdominal tenderness without rebound or guarding Back: Normal inspection Extremity: Normal inspection, left lateral ankle tenderness limited movement secondary to pain. No foot tenderness Neuro: Alert O x 3, no facial asymmetry, speech clear, no gross motor sensory deficit Psych: Appropriate behavior Skin: No rash ED Course Vital Signs 01/05/22 01/05/22 16:57 19:31 Pulse Rate 51 L Respiratory 15 14 Rate Blood Pressure 113/77 [Right] O2 Sat by Pulse 99 Oximetry ED Medical Decision Making - Lab Data Result diagrams: 01/05/22 18:41 01/05/22 18:41 Lab Results 01/05/22 01/05/22 01/05/22 Range/Units 18:41 18:41 Unknown WBC 5.6 (4.5-11.0) K/mm3 RBC 4.03 (3.65-5.03) M/mm3 Hgb 12.3 (11.8-15.2) gm/dl Hct 38.0 (35.5-45.6) % MCV 94 (84-94) fl MCH 30 (28-32) pg MCHC 32 (32-34) % RDW 14.8 (13.2-15.2) % Plt Count 210 (140-440) K/mm3 Lymph % (Auto) 31.8 (13.4-35.0) % [place] % (Auto) 6.4 (0.0-7.3) % Eos % (Auto) 2.0 (0.0-4.3) % Baso % (Auto) 0.6 (0.0-1.8) % Lymph # (Auto) 1.8 (1.2-5.4) K/mm3 [place] # (Auto) 0.4 (0.0-0.8) K/mm3 Eos # (Auto) 0.1 (0.0-0.4) K/mm3 Baso # (Auto) 0.0 (0.0-0.1) K/mm3 Seg Neutrophils % 59.2 (40.0-70.0) % Seg Neutrophils # 3.3 (1.8-7.7) K/mm3 Sodium 143 (137-145) mmol/L Potassium 4.0 (3.6-5.0) mmol/L Chloride 106.3 (98-107) mmol/L Carbon Dioxide 28 (22-30) mmol/L Anion Gap 13 mmol/L BUN 17 (9-20) mg/dL Creatinine 0.8 (0.8-1.3) mg/dL Estimated GFR > 60 ml/min BUN/Creatinine Ratio 21 % Glucose 102 H (75-100) mg/dL Calcium 9.0 (8.4-10.2) mg/dL Total Bilirubin 0.40 (0.1-1.2) mg/dL AST 20 (5-40) units/L ALT 11 (7-56) units/L Alkaline Phosphatase 81 (35-129) units/L Total Protein 6.7 (6.3-8.2) g/dL Albumin 4.0 (3.9-5) g/dL Albumin/Globulin Ratio 1.5 % Lipase 20 (13-60) units/L Urine Color Yellow (Yellow) Urine Turbidity Clear (Clear) Urine pH 6.0 (5.0-7.0) Ur Specific [place] 1.025 (1.003-1.030) Urine Protein 30 mg/dl (Negative) mg/dL Urine Glucose (UA) Neg (Negative) mg/dL Urine Ketones Neg (Negative) mg/dL Urine Blood Sm (Negative) Urine Nitrite Neg (Negative) Urine Bilirubin Neg (Negative) Urine Urobilinogen 4.0 (<2.0) mg/dL Ur Leukocyte Esterase Neg (Negative) Urine WBC (Auto) 1.0 (0.0-6.0) /HPF Urine RBC (Auto) 8.0 (0.0-6.0) /HPF Urine Mucus 3+ /HPF - Radiology Data Radiology results: report reviewed 0LEFT ANKLE 3 VIEWS INDICATION / CLINICAL INFORMATION: lateral ankle pain s/p fall COMPARISON: None available. FINDINGS: BONES / JOINT(S): There is a minimally displaced oblique spiral type distal left fibular diaphyseal fracture. No additional fractures are identified. No significant arthritis. SOFT TISSUES: There is mild soft tissue swelling about the ankle. ADDITIONAL FINDINGS: None. ADDENDUM The impression should read 3. 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 Signer Name: Trey Alan MD Signed: 01/05/2022 9:11 PM Workstation Name: [email or web address] Addendum Transcribed By: DB Addendum Dictated By: TREY ALAN MD Addendum Electronically Authenticated By: TREY ALAN MD Addendum Signed Date/Time: 01/05/222110 DD/ TD/TT: / CT ABDOMEN AND PELVIS WITH CONTRAST INDICATION / CLINICAL INFORMATION: abd pain, n,v, diarrhea. TECHNIQUE: Axial CT images were obtained through the abdomen and pelvis after 100 cc of Omnipaque [address] scans at this location are performed using CT dose reduction for ALARA by means of automated exposure control. COMPARISON: None available. FINDINGS: LOWER CHEST: No significant abnormality. LIVER: No significant abnormality. GALLBLADDER: No significant abnormality. BILE DUCTS: No significant abnormality. PANCREAS: No significant abnormality. SPLEEN: No significant abnormality. ADRENALS: No significant abnormality. RIGHT KIDNEY / URETER: No significant abnormality. LEFT KIDNEY / URETER: No significant abnormality. STOMACH / SMALL BOWEL: No significant abnormality. COLON: No significant abnormality. APPENDIX: No significant abnormality. PERITONEUM: No free fluid. No free air. No fluid collection. LYMPH NODES: Bilateral inguinal lymph nodes are prominent, for example measuring 1.8 x 1.9 cm at left groin. AORTA / ARTERIES: The common iliac arteries are tortuous and borderline aneurysmal measuring 2.0 cm. IVC / VEINS: No significant abnormality. URINARY BLADDER: No significant abnormality. REPRODUCTIVE ORGANS: No significant abnormality. ADDITIONAL FINDINGS: None. SKELETAL SYSTEM: No significant abnormality. IMPRESSION: 1. No acute abnormality identified to account for patient's symptoms. 2. Bilateral inguinal lymphadenopathy is nonspecific. Recommend clinical correlation. 2. 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 - Medical Decision Making 56-year-old male presents to the hospital with complaints of ongoing abdominal pain and new complaint of left distal leg/ankle pain after fall. CT abdomen pelvis does not reveal any acute abnormality. Labs unremarkable. X-ray does reveal an oblique nondisplaced fracture. Splint placed. Outpatient GI and orthopedic follow-up will be provided as well as pain medication Critical Care Time: No Critical care attestation.: If time is entered above; I have spent that time in minutes in the direct care of this critically ill patient, excluding procedure time. ED Disposition Clinical Impression: Abdominal pain, Nausea & vomiting, Left fibular fracture, Common iliac aneurysm Disposition: 01 HOME / SELF CARE / HOMELESS Is pt being admited?: No Does the pt Need Aspirin: No Condition: Stable Instructions: Nondisplaced Fibular Ankle Fracture Treated With Immobilization, Adult, Abdominal Pain, Adult, Nausea and Vomiting, Adult, Pseudoaneurysm, Cast or Splint Care, Adult Additional Instructions: Take the medication as prescribed. Follow-up with your doctor or doctor/clinic provided. Return if symptoms worsen as indicated by your discharge instructions. Prescriptions: Ibuprofen [Motrin] 600 mg PO Q8H PRN #20 tablet PRN Reason: Pain HYDROcodone/APAP 5-325 [[place] 5/325] 1 each PO Q6HR PRN #12 tablet PRN Reason: Pain Famotidine [Pepcid] 20 mg PO BID #20 tablet Ondansetron [Zofran Odt] 4 mg PO Q8HR #20 tab.rapdis Referrals: DESHAWN BOLTON MD [Staff Physician] - 3-5 Days (GI doctor ) NICK MEANS MD [Staff Physician] - 3-5 Days (orthopedic doctor ) BANDAR CRAWFORD JR, MD [Primary Care Provider] - 3-5 Days (primary care doctor ) Time of Disposition: 23:17
--- NOTE | 2022-01-05 18:58 | XRay Report ---
LEFT ANKLE 3 VIEWS INDICATION / CLINICAL INFORMATION: lateral ankle pain s/p fall COMPARISON: None available. FINDINGS: BONES / JOINT(S): There is a minimally displaced oblique spiral type distal left fibular diaphyseal f racture. No additional fractures are identified. No significant arthritis. SOFT TISSUES: There is mild soft tissue swelling about the ankle. ADDITIONAL FINDINGS: None. Signer Name: Raul Galeana MD Signed: 01/05/2022 6:54 PM Workstation Name: [id number]
[2022-01-05 19:02] LABS: Basophils % (Auto) 0.6 % (0.0-1.8); Eosinophils # (Auto) 0.1 K/mm3 (0.0-0.4); Hemoglobin 12.3 gm/dl (11.8-15.2); Lymphocytes # (Auto) 1.8 K/mm3 (1.2-5.4); Lymphocytes % (Auto) 31.8 % (13.4-35.0); Mean Corpuscular HGB Conc 32 % (32-34); Mean Corpuscular Volume 94 fl (84-94); Monocytes # (Auto) 0.4 K/mm3 (0.0-0.8); Monocytes % (Auto) 6.4 % (0.0-7.3); Platelet Count 210 K/mm3 (140-440); Red Blood Count 4.03 M/mm3 (3.65-5.03); Red Cell Distribution Width 14.8 % (13.2-15.2)
[2022-01-05 19:15] LABS: Alanine Aminotransferase 11 units/L (7-56); BUN/Creatinine Ratio 21; Blood Urea Nitrogen 17 mg/dL (9-20); Hemolysis Index 5
--- NOTE | 2022-01-05 21:09 | Cat Scan Report ---
CT ABDOMEN AND PELVIS WITH CONTRAST INDICATION / CLINICAL INFORMATION: abd pain, n,v, diarrhea. TECHNIQUE: Axial CT images were obtained through the abdomen and pelvis after 100 cc of Omnipaque [address] scans at this location are performed using CT dose reduction for ALARA by means of automated exposure control. COMPARISON: None available. FINDINGS: LOWER CHEST: No significant abnormality. LIVER: No significant abnormality. GALLBLADDER: No significant abnormality. BILE DUCTS: No significant abnormality. PANCREAS: No significant abnormality. SPLEEN: No significant abnormality. ADRENALS: No significant abnormality. RIGHT KIDNEY / URETER: No significant abnormality. LEFT KIDNEY / URETER: No significant abnormality. STOMACH / SMALL BOWEL: No significant abnormality. COLON: No significant abnormality. APPENDIX: No significant abnormality. PERITONEUM: No free fluid. No free air. No fluid collection. LYMPH NODES: Bilateral inguinal lymph nodes are prominent, for example measuring 1.8 x 1.9 cm at left groin. AORTA / ARTERIES: The common iliac arteries are tortuous and borderline aneurysmal measuring 2.0 cm. IVC / VEINS: No significant abnormality. URINARY BLADDER: No significant abnormality. REPRODUCTIVE ORGANS: No significant abnormality. ADDITIONAL FINDINGS: None. SKELETAL SYSTEM: No significant abnormality. IMPRESSION: 1. No acute abnormality identified to account for patient's symptoms. 2. Bilateral inguinal lymphadenopathy is nonspecific. Recommend clinical correlation. 2. 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 Signer Name: Trey Alan MD Signed: 01/05/2022 9:05 PM Workstation Name: [id number]
[2022-01-05 21:11] LABS: Bilirubin,Urine NEG (Negative); Blood,Urine SM (Negative); Color,Urine Yellow (Yellow); Mucus,Urine 3+ /HPF
[2022-01-05 23:33] VITALS: BP 117/82
== END 2022-01-05 23:35 | disposition home or self-care (01) ==
LOC: ED 16:02
DX: S82.402A Unspecified fracture of shaft of left fibula, initial encounter for closed fracture (principal); R10.9 Unspecified abdominal pain; R11.2 Nausea with vomiting, unspecified; F17.200 Nicotine dependence, unspecified, uncomplicated; I72.3 Aneurysm of iliac artery; X58.XXXA Exposure to other specified factors, initial encounter; Y93.89 Activity, other specified; Y92.89 Other specified places as the place of occurrence of the external cause; Y99.8 Other external cause status
CPT/HCPCS: 29515; 36415; 73610; 74177; 80053; 81001; 83690; 85025; 96374; 96375; 99284; J2270; J2405; J3490; Q9967